=== PATIENT | male | born 1930 | race African-American/Black ===

== ENCOUNTER 2017-01-26 16:12 | Outpatient (CLI) | payer MEDICARE ==
[2017-01-26 16:53] LABS: ALT (SGPT) 12 U/L (8-55); AST (SGOT) 21 U/L (5-34); Albumin 3.5 g/dL (3.4-4.8); Alkaline Phosphatase 51 U/L (40-150); Anion Gap 17 mmol/L (10-20); BUN (Urea Nitrogen) 32 mg/dL (8.4-25.7); Calc. Creatinine Clearance 0 mL/min (70-130); Calcium 9.5 mg/dL (7.8-10.44); Carbon Dioxide 22 mmol/L (23-31); Chloride 109 mmol/L (98-107); Estimated GFR-MDRD 49; Globulin 3.1 g/dL (2.4-3.5); Glucose 90 mg/dL (83-110); Potassium 4.3 mmol/L (3.5-5.1); Protein, Total 6.6 g/dL (5.8-8.1); Sodium 144 mmol/L (136-145)
--- NOTE | 2017-01-26 18:52 | CT ---
CT OF ABDOMEN AND PELVIS 01/26/17 COMPARISON: 09/09/11 HISTORY: Scrotal edema, penile edema. TECHNIQUE: Serial axial CT imaging obtained at 5 mm intervals from lung bases through pubic symphysis with IV c ontrast. Coronal reformatted imaging obtained. FINDINGS: There is diffuse increased density throughout the subcutaneous fat of the visualized abdomen and pel vis, new, consistent with diffuse anasarca. The imaged scrotum as well as the penile soft tissues ar e edematous. There is a focus of gas within the distal aspect of the penis on image 74 which could r epresent gas trapped within redundant soft tissues. Clinical correlation is required. New small pleural effusions are noted, right larger than left. Transvenous pacing device is present, incompletely assessed. There is no free intraperitoneal air. There is diffuse edematous change throughout the fat throughout the abdomen/pelvis. There is diffuse heterogeneity of the hepatic parenchyma suggesting edematous change and periportal edema. This stud y was performed in an arterial dominant phase, limiting assessment for focal liver lesion. Gallbladd er appears surgically absent. Splenic granulomata are noted. No discrete pancreatic or adrenal mass. Kidneys demonstrate diffuse cortical thinning and are mildly atrophic measuring 8.6 cm in craniocau diaz dimension on the right and 8.2 cm in craniocaudal dimension on the left. Diffuse small volume fr ee fluid is seen within the abdomen/pelvis. Limited assessment of the bowel without contrast demonst rates no evidence for obstruction. Detailed assessment of the bowel is limited secondary to the salvador atous change throughout the mesenteric fat. The abdominal aorta and its branches appear patent. Ther e is atherosclerotic calcification of the distal abdominal aorta and the arterial structures of the pelvis. There is significant soft plaque within the medial aspect of the left common iliac artery. T here is degenerative change involving bilateral hips and the pubic symphysis. There is extensive deg enerative change involving the lumbar spine. There appears to be significant anterolisthesis at the lumbosacral junction suggesting bilateral pars defects. IMPRESSION: Anasarca with diffuse mesenteric edematous change, penile and scrotal edematous change, and bilatera l pleural effusions. Punctate focus of gas within the distal aspect of the penile soft tissues as de scribed above. No evidence for free intraperitoneal air or small bowel obstruction. POS: [facility]
[2017-01-26 22:10] LABS: #Basophils 0.1 thou/uL (0.0-0.2); #Lymphocytes 1.2 thou/uL (1.20-3.40); #Monocytes 0.6 thou/uL (0.11-0.59); #Neutrophils 7.7 thou/uL (1.40-6.50); %Basophils 0.5 % (0.0-1.0); %Eosinophils 0.5 % (0.0-10.0); %Lymphocytes 12.8 % (21.0-51.0); %Monocytes 5.9 % (0.0-10.0); %Neutrophils 80.4 % (42.0-75.0); Hemoglobin 13.1 g/dL (14.0-18.0); Large Platelets SLIGHT; MDiff Complete? YES; Macrocytosis SLIGHT = 6-15 cells (100X) (0-5/hpf); Mean Corpuscular HGB CONC 31.2 g/dL (32.0-36.0); Mean Corpuscular Hemoglobin 31.2 pg (27.0-31.0); Mean Platelet Volume 9.5 fL (7.4-10.4); PLT Morphology Comment Appears Adequate; Platelet Count 118 thou/uL (130-400); RBC Distribution Width 13.2 % (11.5-14.5); Red Blood Cell (RBC) Count 4.18 mill/uL (4.70-6.10); White Blood Cell (WBC) Count 9.6 thou/uL (4.8-10.8)
== END 2017-01-26 16:13 | disposition home or self-care (01) ==
LOC: NAV CT 16:12
PROVIDERS: ATTEND Internal Medicine
DX: N50.89 Other specified disorders of the male genital organs (principal); N48.89 Other specified disorders of penis; I25.10 Atherosclerotic heart disease of native coronary artery without angina pectoris
CPT/HCPCS: 36415; 74177; 80053; 83880; 85025; G0103

== ENCOUNTER 2017-02-13 15:22 | Outpatient (CLI) | payer MEDICARE ==
[2017-02-13 22:12] LABS: Thyroid Stimulating Hormone 31.7941 uIU/mL (0.35-4.94)
[2017-02-14 19:10] LABS: T4 3.5 ug/dL (4.87-11.72)
== END 2017-02-13 15:23 | disposition home or self-care (01) ==
LOC: NAV LABSP 15:22
PROVIDERS: ATTEND Internal Medicine
DX: E78.5 Hyperlipidemia, unspecified (principal); I11.0 Hypertensive heart disease with heart failure; R79.89 Other specified abnormal findings of blood chemistry
CPT/HCPCS: 84436; 84443

== ENCOUNTER 2017-05-02 16:19 | Outpatient (CLI) | payer MEDICARE ==
[2017-05-02 17:18] LABS: Anion Gap 19 mmol/L (10-20); BUN (Urea Nitrogen) 48 mg/dL (8.4-25.7); Calc. Creatinine Clearance 0 mL/min (70-130); Calcium 9.3 mg/dL (7.8-10.44); Carbon Dioxide 23 mmol/L (23-31); Chloride 105 mmol/L (98-107); Estimated GFR-MDRD 28; Glucose 125 mg/dL (83-110); Magnesium 2.1 mg/dL (1.6-2.6); Potassium 4.2 mmol/L (3.5-5.1); Sodium 143 mmol/L (136-145)
== END 2017-05-02 16:20 | disposition home or self-care (01) ==
LOC: NAV LABSP 16:19
PROVIDERS: ATTEND Specialist
DX: I50.42 Chronic combined systolic (congestive) and diastolic (congestive) heart failure (principal)
CPT/HCPCS: 36415; 80048; 83735; 83880

== ENCOUNTER 2017-05-22 14:48 | Outpatient (CLI) | payer MEDICARE ==
[2017-05-22 15:31] LABS: Anion Gap 18 mmol/L (10-20); BUN (Urea Nitrogen) 43 mg/dL (8.4-25.7); Calc. Creatinine Clearance 0 mL/min (70-130); Calcium 9.3 mg/dL (7.8-10.44); Carbon Dioxide 23 mmol/L (23-31); Chloride 108 mmol/L (98-107); Estimated GFR-MDRD 38; Glucose 90 mg/dL (83-110); Potassium 4.1 mmol/L (3.5-5.1); Sodium 145 mmol/L (136-145)
== END 2017-05-22 14:49 | disposition home or self-care (01) ==
LOC: NAVSJIPCSP 14:48
PROVIDERS: ATTEND Internal Medicine
DX: I50.22 Chronic systolic (congestive) heart failure (principal)
CPT/HCPCS: 36415; 80048; 83880